=== PATIENT | female | born 1980 | race Caucasian/White ===

== ENCOUNTER 2017-04-29 04:13 | Emergency (ER) | payer SELFPAY ==
[~2017-04-29] VITALS: Ht 162.6 cm; Wt 57.0 kg
[2017-04-29 04:16] VITALS: BP 127/81; PULSE 86; RESP 18; TEMP 98.1; O2SAT 96
[2017-04-29] MEDS ORDERED: LIDOCAINE 1%/EPINEPHrine 1:100,000 SOLN 20 ML VIAL INFIL ONE (04:30)
[2017-04-29] MEDS ORDERED: TETANUS/DIPHTHERIA TOXOID ADULT 0.5 ML VIAL IM ONE (04:30)
[2017-04-29] MEDS ORDERED: LIDOCAINE 1%/EPINEPHrine 1:100,000 SOLN 50 ML VIAL INFIL ONE (04:30)
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
[2017-04-29] MEDS ORDERED: ALPRAZolam 1 MG TAB PO ONE (05:00)
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
== END 2017-04-29 05:50 | disposition home or self-care (01) ==
LOC: NEPD 04:13
DX: S01.01XA Laceration without foreign body of scalp, initial encounter (principal); Z23 Encounter for immunization; Y04.2XXA Assault by strike against or bumped into by another person, initial encounter
CPT/HCPCS: 12001; 70450; 84703; 90471; 90714